=== PATIENT | male | born 1950 | race Caucasian/White ===

== ENCOUNTER 2023-05-30 15:34 | Day surgery (SDC) | payer MEDICARE ==
[2023-05-30] MEDS ORDERED: BUPIVACAINE 0.5% VIAL IJ ONE (15:35)
[2023-05-30] MEDS ORDERED: LIDOCAINE HCL 1% 50 MG/5 ML VL PF IJ ONE (15:35)
[2023-05-30] MEDS ORDERED: Depo-Medrol 40 MG/ML IM ONE (15:35)
--- NOTE | 2023-05-30 20:37 | XRAY ---
Indication: Bilateral SI joint injection. Intraoperative fluoroscopy provided for 16 seconds. 4 digital spot image submitted for interpretation demonstrates posterior needle tip projecting over the left and right SI joints. Correlate with intraoperative findings/report.
--- NOTE | 2023-05-31 09:19 | XRAY ---
16 seconds of fluoroscopy was used in surgery for a bilateral sacroiliac joint injection.
== END 2023-05-30 19:10 | disposition home or self-care (01) ==
LOC: SDC-PAIN 15:34
PROVIDERS: ATTEND Psychiatry & Neurology Pain Medicine
DX: M46.1 Sacroiliitis, not elsewhere classified (principal); E11.9 Type 2 diabetes mellitus without complications
CPT/HCPCS: 27096; 72202; 77002; 82947; J1030; J2001; G0260